=== PATIENT | male | born 1955 | race Caucasian/White ===

== ENCOUNTER 2016-06-01 10:22 | Day surgery (SDC) | payer SELFPAY ==
--- NOTE | 2016-06-01 07:57 | HP ---
DATE OF SURGERY: 06/01/2016 HISTORY OF PRESENT ILLNESS: The patient is a 60 year-old with no prior colonoscopy. Family history of lung cancer. Negative for colon cancer. Bleeding with bowel movement off and on in the past, the last three months worse. He had some internal and external hemorrhoids as well. He is in need for colonoscopy possible internal and external hemorrhoidectomy versus internal hemorrhoid banding depending on operative findings. PAST MEDICAL HISTORY: Hypothyroidism, chronic obstructive pulmonary disease. PAST SURGICAL HISTORY: Left hip fracture and appendectomy in the past. MEDICATIONS: He takes thyroid medication. ALLERGIES: GI UPSET AND VOMITING WITH CODEINE. FAMILY HISTORY: Lung cancer. Mother had diabetes. SOCIAL HISTORY: One pack per day smoker. Denies alcohol abuse. REVIEW OF SYSTEMS: Ten systems reviewed. No chest pains or palpitations other systems negative or noncontributory as above and per preadmission questionnaire. PHYSICAL EXAMINATION: GENERAL: No acute distress. HEENT: Sclerae nonicteric. NECK: No JVD. CHEST: Clear to auscultation. CVS: Regular rhythm. ABDOMEN: Soft, nontender. No peritoneal signs. EXTREMITIES: No significant edema. NEURO: Alert, moving extremities symmetrically. No gross motor deficits noted. IMPRESSION: Rectal bleeding, some internal and external hemorrhoids. I feel he will benefit from colonoscopy, possible internal and external hemorrhoidectomy, possible hemorrhoid banding depending on operative findings. Risks and benefits explained in detail including but not limited to bleeding or infection, risk of bowel injury or perforation possibly requiring open procedure, risk of missed or nondiagnosis or incomplete exam possibly requiring barium enema, other studies or procedures, general risk of anesthesia or sedation. Should hemorrhoid disease be severe enough at the time of surgery to warrant excision general risk of bleeding or infection, risk of wound dehiscence, risk of anal stenosis, risk aches, pains, burning or numbness possibly ferry terminal agent or chronic in nature, risk of sphincter spasm or irritability or dysfunction, risk or solid or gas control issues transient or longer term, possibility that hemorrhoids are improved and he decides to consider hemorrhoid banding at this point, possibility of progression of hemorrhoid disease, possibly requiring other intervention down the road or referral to other specialist. He understands and agrees to the planned procedure and will proceed with possible internal and external hemorrhoidectomy, possible internal hemorrhoid banding depending on operative findings at the time colonoscopy.
[~2016-06-01 10:22] MED LIST: ANUSOL-HC 2.5% CREAM 30 GM ONE; DIPRIVAN 200 MG/20 ML IV ONE; Ketamine HCl 50 MG/ML IV ONE; Lactated Ringers 1,000 ML IV ONE; Lactated Ringers 1,000 ML IV SCH; Pepcid 20 MG VIAL IV ONE
[2016-06-01] MEDS ORDERED: Sensorcaine 0.25% 10 ML ONE (11:19)
[2016-06-01] MEDS ORDERED: XYLOCAINE 1% HCL 20 ML MDV ONE (11:19)
[2016-06-01] MEDS ORDERED: DILAUDID 2 MG INJECTION ONE (12:34)
[2016-06-01 14:21] VITALS: BP 136/91; PULSE 61; O2SAT 99
--- NOTE | 2016-06-02 08:05 | OP ---
SURGERY DATE/TIME: 06/01/2016 1141 PREOPERATIVE DIAGNOSES: 1) History of rectal bleeding. 2) History of some internal and external hemorrhoids. 3) Need for screening colonoscopy. POSTOPERATIVE DIAGNOSES: 1) Small polyps versus hyperplastic lesion ascending colon, transverse colon, sigmoid colon. 2) Patchy area of inflammation sigmoid colon. 3) Path pending to evaluate for microscopic colitis. 4) Diverticulosis. 5) Internal and external hemorrhoids. 6) Somewhat poor bowel prep limiting the exam. PROCEDURES: 1) Colonoscopy terminal ileum. 2) Retrograde ileoscopy. 3) Hot snare polypectomy sigmoid colon polyp. 4) Hot biopsy removal small early polyp versus hyperplastic lesion ascending colon. 5) Hot biopsy removal small raised lesion versus early polyp transverse colon. 6) Random cold biopsy patchy area of inflammation sigmoid colon to evaluate for microscopic colitis. 7) Internal hemorrhoid banding x3 columns. SURGEON: Dr. Natan Torres. ANESTHESIA: MAC. ESTIMATED BLOOD LOSS: Minimal. INDICATIONS: As noted above. Risks and benefits explained in detail but not limited to. It should be noted that immediately prior to procedure had discussion again with the patient regarding considering excisional hemorrhoidectomy versus hemorrhoid banding. After a long discussion with the patient external hemorrhoids were not bothering him much at this point. The options explained in detail including the risk of progression of hemorrhoid disease possibly requiring other treatments down the road versus aches and pains with any excisional hemorrhoidectomy. I had a long discussion with the patient and as the external ones were not bothering him that much at this point. He elected to try trial of more conservative approach of internal hemorrhoid banding understanding that he could still have progression of hemorrhoid disease and that the internal hemorrhoid banding does not treat the external hemorrhoids. He understood and desired to proceed with hemorrhoid banding after colonoscopy. Consent had been obtained. DESCRIPTION OF PROCEDURE AND FINDINGS: The patient is taken to the operating room. MAC anesthesia had been provided, lateral position. After official time out and no disagreement with the planned procedure, digital rectal exam did not reveal any rectal masses. He did have some internal and external hemorrhoids. Video colonoscope inserted and passed up through the tortuous sigmoid, descending, transverse colon. Poorly prepped. It had some solid and semisolid liquidy stool limiting exam for potential small lesions. With external pressure and positioned on his back, the scope was able to be passed around the ascending colon to the terminal ileum and then up into the terminal ileum. Retrograde ileoscopy was performed. Terminal ileum was grossly unremarkable. On withdrawal of the scope the scope was slowly and carefully withdrawn. There were small little raised polyp on a fold was removed with hot biopsy forceps in two pieces. It appeared to have adequate removal. Whether this is a hyperplastic lesion versus early true polyp or adenoma is unclear. It had been removed with hot biopsy forceps with brief bursts of cautery elevating well away from the bowel wall. The scope was then pulled back into transverse colon. Small raised lesion was removed with hot biopsy forceps brief bursts of cautery elevating it well away from the bowel wall. Good hemostasis was noted. The scope was slowly and carefully withdrawn. Back in the sigmoid colon he had some diverticulosis as well as slightly larger polyp that was about 4 to 5 mm in size that was removed with hot snare polypectomy elevating well away from bowel wall with brief bursts of cautery. It was suctioned. The staff reported that they had the polyp in question to pass off to pathology. Good hemostasis noted. Otherwise again he had poor prep with solid, semi-solid and liquidy stool limiting the exam. He had some diverticulosis. The scope pulled back in. He had internal and external hemorrhoids mentioned above otherwise no signs of any other large polyps, masses or obstructing lesions. The scope was withdrawn. The patient tolerated this part of the procedure well. It should be noted that he did have some patchy inflammation in the sigmoid colon and cold biopsy had been taken to evaluate for microscopic colitis. Otherwise the scope was withdrawn. Attention was then turned to the hemorrhoids. In the lateral position still under MAC anesthesia he did have any evidence of any thrombosed external hemorrhoids. He did have some skin from past issues with hemorrhoids. He did have very prominent grade III internal hemorrhoids. It was felt that he warranted hemorrhoid banding. First starting with the left lateral position anal skin was everted allowing better visualization of the prominent internal hemorrhoid. Initial hemorrhoid band is fired. Second hemorrhoid band was carefully placed at top edge of the hemorrhoid hopefully acquiring decent amount of material, good tuft of tissue noted. This procedure was then repeated in the right posterior where he had a very prominent internal hemorrhoid. Again suction information clerk brokerage applied on top of the hemorrhoid hopefully acquiring the material. Good tuft of tissue was noted. This was again repeated in the right anterior position. Good hemostasis noted. The patient had scant ooze and a small piece of Surgicel and Anusol was placed in the anal canal. The patient tolerated the procedure well. There were no immediate complications. Again I had a long discussion with the patient and he preferred to try the hemorrhoid banding first rather than excisional therapy at this time. Findings discussed with the family out in the waiting area. I will see him back in the office in two weeks.
== END 2016-06-01 14:05 | disposition home or self-care (01) ==
LOC: SDC 10:22
PROVIDERS: ATTEND Surgery
PROC: 0DJD8ZZ Inspection of Lower Intestinal Tract, Via Natural or Artificial Opening Endoscopic (ICD-10-PCS; principal; 2016-06-01)
PROC: 0DJD8ZZ Inspection of Lower Intestinal Tract, Via Natural or Artificial Opening Endoscopic (ICD-10-PCS; 2016-06-01)
PROC: 0DBN8ZX Excision of Sigmoid Colon, Via Natural or Artificial Opening Endoscopic, Diagnostic (ICD-10-PCS; 2016-06-01)
PROC: 0DBK8ZX Excision of Ascending Colon, Via Natural or Artificial Opening Endoscopic, Diagnostic (ICD-10-PCS; 2016-06-01)
PROC: 0DBL8ZX Excision of Transverse Colon, Via Natural or Artificial Opening Endoscopic, Diagnostic (ICD-10-PCS; 2016-06-01)
PROC: 0DBN8ZX Excision of Sigmoid Colon, Via Natural or Artificial Opening Endoscopic, Diagnostic (ICD-10-PCS; 2016-06-01)
PROC: 065Y4ZC Destruction of Hemorrhoidal Plexus, Percutaneous Endoscopic Approach (ICD-10-PCS; 2016-06-01)
DX: D12.2 Benign neoplasm of ascending colon (principal); K62.5 Hemorrhage of anus and rectum; K64.8 Other hemorrhoids; K64.4 Residual hemorrhoidal skin tags; Z12.11 Encounter for screening for malignant neoplasm of colon; D12.4 Benign neoplasm of descending colon; D12.3 Benign neoplasm of transverse colon; K63.9 Disease of intestine, unspecified; K57.90 Diverticulosis of intestine, part unspecified, without perforation or abscess without bleeding; K52.9 Noninfective gastroenteritis and colitis, unspecified; Z80.1 Family history of malignant neoplasm of trachea, bronchus and lung; J44.9 Chronic obstructive pulmonary disease, unspecified; E03.9 Hypothyroidism, unspecified; Z79.899 Other long term (current) drug therapy; Z72.0 Tobacco use
CPT/HCPCS: 00810; 36415; 45398; 88305; J1170; J2704; A9270-GY